=== PATIENT | female | born 1995 | race Caucasian/White ===

== ENCOUNTER → 2017-12-30 14:04 | Outpatient (CLI) | payer BC, SELFPAY ==
[2017-12-30 18:30] LABS: Chlamydia Trachomatis by PCR Negative (Negative); Neisserai gonorrhoeae by PCR Negative (Negative); Probe Check PASS; Sample Adequacy Control PASS; Specimen Processing Control PASS
== END ==
PROVIDERS: Visit Provider Obstetrics & Gynecology
DX: Z11.3 Encounter for screening for infections with a predominantly sexual mode of transmission (principal)
CPT/HCPCS: 87491; 87591

== ENCOUNTER → 2023-05-21 | Outpatient (CLI) | payer BC, SELFPAY ==
[2023-05-24 23:07] LABS: HPV Reflexed? NOT INDICATED
== END | disposition home or self-care (01) ==
LOC: LABSPEC 16:42
PROVIDERS: PCP Family Medicine; Referring Provider Nurse Practitioner Women's Health; Visit Provider Nurse Practitioner Women's Health
DX: Z12.4 Encounter for screening for malignant neoplasm of cervix (principal)
CPT/HCPCS: 88175; G0145

== ENCOUNTER → 2024-10-01 | Outpatient (CLI) | payer BC, SELFPAY | END | disposition home or self-care (01) | LOC: LABSPEC 16:53 | PROVIDERS: PCP Family Medicine | DX: L29.0 Pruritus ani (principal) | CPT/HCPCS: 87177; 87209 ==

== ENCOUNTER → 2024-10-01 | Outpatient (CLI) | payer BC, SELFPAY | END | disposition home or self-care (01) | LOC: LABSPEC 09:27 | PROVIDERS: PCP Family Medicine | DX: L29.0 Pruritus ani (principal) | CPT/HCPCS: 87086 ==